=== PATIENT | female | born 1970 | race Hispanic/Latino ===

== ENCOUNTER 2023-03-25 19:02 | Inpatient (IN) | payer OTHER ==
--- OUTSIDE RECORDS SUMMARY | 2023-03-25 19:05 | XMS REPORT | Continuity of Care Document ---
Author Name Unknown Address [address] [facility] [address] [place] [address] [facility] thconnect Address [address] [facility] [address] [place] [address] Care Team Providers Care Gun Examiner Name Role Phone SANDRA JAUREGUI Primary Care Physician Unava ilJAZMIN Castro Attending Clinician Unavailable [email or web address] Attending Clinician Unavaila ble LAB90 Attending Clinician Unavailable MIGUEL SUE Attending Clinician Unavaila ble TESTING, [place] AAKASH DELACRUZ Attending Clinician U navailable Radiology Attending Clinician Unavailable RADIOLOGY Attending Clinician Unavailable Doctor Unassigned, [place] Attending Clinician U navailable [email or web address] Admitting Clinician Unavaila SANDRA Mcadams Admitting Clinician Unavaila ble Payers Payer Name Policy Type Policy Number Effective Date Expirati on Date Source [facility] MARLO CORCORAN [employer] 9 [id number] 2023 00:00:00 MANJEET CORCORAN: HMO ON STANDARD 9 [id number] 2022 00:00:00 [employer] 2 [id number] 2022 00:00:00 Problems Condition Name Condition Details Condition Category Status Onset Date Resolution Date Last Treatment Date Treating Clinician Comments Source Well adult exam Well adult exam Disease Active 10-05 00:00: 00 Henny Bautista Externa l Allergies, Adverse Reactions, Alerts Allergy Name Allergy Type Status Severity Reaction(s) Onset Date Inactive Date Treating Clinician Comments Source Sofia - Intraven jesenia Propensi ty to adverse reaction to drug Active 09-06 00:00: 00 NO KNOWN ALLERGIE S Drug Class Active [facility] Social History Social Habit Start Date Stop Date Quantity Comments Source Gender identity Meena hernandez Seybold - External Sexual orientation Ori jay Seybold - External Alcohol intake 2022-10-05 00:00:00 2022-10-05 00:00:00 Ex-drinker (finding) Henny Sejaimeold - External Tobacco use and exposure 2022-05-03 00:00:00 2022-05-03 00:00:00 Smokeless tobacco non-user Henny jaimemary - External Education 2022-05-03 00:00:00 2022-05-03 00:00:00 6 Henny cherelle - External History of Social function 2022-05-03 00:00:00 2022-05-03 00:00:00 Henny Diego - External Sex Assigned At 1970 00:00:00 1970 00:00:00 Henny jaimeold - External Smoking Status Start Date Stop Date Source Tobacco smoking consumption unknown Henny cherelle - External Never smoked tobacco Henny Sejaimemary - External Medications Ordered Medication Name Filled Medication Name Start Date Stop Date Current Medication? Ordering Clinician Indication Dosage Frequency Signature (SIG) Comments Components Source FLUTICASONE PROPIONATE, NASAL, 50 MCG/ACT nasal Suspension 10-05 00:00: 00 Yes [id number] 50ug QD Use 1 spray (50 mcg total) in each nostril daily as needed for rhinitis Henny Bautista Externa l Cetirizine (ZYRTEC) 10 MG oral Tablet 10-05 00:00: 00 Yes [id number] 10mg QD Take 1 tablet (10 mg total) by mouth daily as needed for allergies Henny Diego - Externa l PAXLOVID STANDARD (30) (300/100) Therapy Pack 08-05 00:00: 00 10-05 00:00 :00 No [id number] Take two 150 mg nirmatrelv ir (pink) tablets with one 100 mg ritonavir (white) tablet by mouth two times daily for 5 days Henny dykes Amoxicillin -Pot Clavulanate 875-125 MG oral Tablet 08-04 00:00: 00 Yes [id number] 1{tbl} Take 1 tablet by mouth 2 times daily Henny dykes Benzonatate (Tessalon Perles) 100 MG oral Capsule 08-04 00:00: 00 Yes [id number] 100mg Q.80697873 [id number] 3D Take 1 capsule (100 mg total) by mouth 3 times daily as needed for cough Henny dykes Amoxicillin -Pot Clavulanate 875-125 MG oral Tablet 08-04 00:00: 00 10-05 00:00 :00 No [id number] 1{tbl} Take 1 tablet by mouth 2 times daily Henny dykes Benzonatate (Tessalon Perles) 100 MG oral Capsule 08-04 00:00: 00 10-05 00:00 :00 No [id number] 100mg Q.44377754 [id number] 3D Take 1 capsule (100 mg total) by mouth 3 times daily as needed for cough Henny dykes FLUTICASONE PROPIONATE, NASAL, 50 MCG/ACT nasal Suspension 07-01 00:00: 00 Yes [id number] SPRAY 1 SPRAY INTO EACH NOSTRIL EVERY DAY Henny dykes FLUTICASONE PROPIONATE, NASAL, 50 MCG/ACT nasal Suspension 07-01 00:00: 00 10-05 00:00 :00 No [id number] SPRAY 1 SPRAY INTO EACH NOSTRIL EVERY DAY Henny dykes Azithromyci n 250 MG oral Tablet 05-03 00:00: 00 08-04 00:00 :00 No [id number] Take 2 tablets by mouth on day 1 then 1 tablet by mouth daily for 4 days thereafter . Henny dykes Azithromyci n 250 MG oral Tablet 05-03 00:00: 05-09 04:59 :00 No [id number] Take 2 tablets by mouth on day 1 then 1 tablet by mouth daily for 4 days thereafter . Henny dykes Naproxen 500 MG oral Tablet 04-26 00:00: 00 Yes [id number] 500mg Take 1 tablet (500 mg total) by mouth in the morning and 1 tablet (500 mg total) in the evening. Take with meals. Henny dykes Cetirizine HCl (ZyrTEC Allergy) 10 MG oral Capsule 04-26 00:00: 00 Yes [id number] 10mg Take 1 capsule (10 mg total) by mouth daily Henny dykes methylPREDN ISolone 4 MG oral Tablet Therapy Pack 04-26 00:00: 00 Yes [id number] 1{jo} Take 1 jo by mouth See Admin Instructio ns Use as directed Henny dykes FLUTICASONE PROPIONATE, NASAL, 50 MCG/ACT nasal Suspension 04-26 00:00: 00 Yes [id number] 50ug Use 1 spray (50 mcg total) in each nostril daily Henny dykes Benzonatate (Tessalon Perles) 100 MG oral Capsule 04-26 00:00: 00 Yes [id number] 100mg Q.49220204 [id number] 3D Take 1 capsule (100 mg total) by mouth 3 times daily as needed for cough Henny dykes Naproxen 500 MG oral Tablet 04-26 00:00: 00 Yes [id number] 500mg Take 1 tablet (500 mg total) by mouth in the morning and 1 tablet (500 mg total) in the evening. Take with meals. Henny dykes FLUTICASONE PROPIONATE, NASAL, 50 MCG/ACT nasal Suspension 04-26 00:00: 00 Yes [id number] 50ug Use 1 spray (50 mcg total) in each nostril daily Henny dykes Benzonatate (Tessalon Perles) 100 MG oral Capsule 04-26 00:00: 00 Yes [id number] 100mg Q.86475463 [id number] 3D Take 1 capsule (100 mg total) by mouth 3 times daily as needed for cough Henny dykes Cetirizine (ZYRTEC) 10 MG oral Tablet 04-26 00:00: 00 Yes 1{tbl} Take 1 tablet by mouth daily Henny dykes Naproxen 500 MG oral Tablet 04-26 00:00: 00 Yes [id number] 500mg Take 1 tablet (500 mg total) by mouth in the morning and 1 tablet (500 mg total) in the evening. Take with meals. Henny dykes Cetirizine (ZYRTEC) 10 MG oral Tablet 04-26 00:00: 00 Yes 10mg Take 1 tablet (10 mg total) by mouth daily Henny dykes Naproxen 500 MG oral Tablet 04-26 00:00: 00 Yes [id number] 500mg Take 1 tablet (500 mg total) by mouth in the morning and 1 tablet (500 mg total) in the evening. Take with meals. Henny dykes Cetirizine (ZYRTEC) 10 MG oral Tablet 04-26 00:00: 00 10-05 00:00 :00 No 10mg Take 1 tablet (10 mg total) by mouth daily Henny dykes Benzonatate (Tessalon Perles) 100 MG oral Capsule 04-26 00:00: 00 08-04 00:00 :00 No [id number] 100mg Q.[id number] 3D Take 1 capsule (100 mg total) by mouth 3 times daily as needed for cough Henny dykes Cetirizine HCl (ZyrTEC Allergy) 10 MG oral Capsule 04-26 00:00: 00 05-03 00:00 :00 No [id number] 10mg Take 1 capsule (10 mg total) by mouth daily Henny dykes methylPREDN ISolone 4 MG oral Tablet Therapy Pack 04-26 00:00: 00 05-03 00:00 :00 No [id number] 1{jo} Take 1 jo by mouth See Admin Instructio ns Use as directed Henny Seybold - Externa l APPLY 2 TOPICAL GRAMS TO AFFECTED AREAS TWICE DAIY 09-06 00:00: 00 No TAKE 1 CAPSULE BY MOUTH TWICE A DAY FOR 7 DAYS 09-06 00:00: 00 No 100 TAKE 1 TABLET BY MOUTH EVERY 12 HOURS FOR 10 DAYS 09-06 00:00: 00 No TAKE 1 TAB(S) ORALLY EVERY 6 HOURS, NEEDED TAKE WITH FOOD 09-06 00:00: 00 No 400 TAKE 1 CAPSULE BY MOUTH TWICE A DAY FOR 7 DAYS 09-06 00:00: 00 No 100 Dose Unknown 08-13 00:00: 00 No TAKE 1 CAPSULE BY MOUTH TWICE A DAY FOR 7 DAYS 08-13 00:00: 00 No amoxicillin 875 mg-potassiu m clavulanate 125 mg tablet 08-13 00:00: 00 No 1mg Bromfed DM 2 mg-30 mg-10 mg/5 mL oral syrup 08-13 00:00: 00 No 10mg/5 mL APPLY 2 TOPICAL GRAMS TO AFFECTED AREAS TWICE 08-13 00:00: 00 No TOME JENNI TABLETA MONSTER VECES AL LIZETTE CUANDO SEA NECESARIO 30 08-13 00:00: 00 No TAKE 1 TAB(S) ORALLY EVERY 6 HOURS, NEEDED TAKE WITH FOOD 08-13 00:00: 00 No TOME JENNI TABLETA MONSTER VECES AL LIZETTE CUANDO SEA NECESARIO 30 08-13 00:00: 00 No Vital Signs Vital Name Observation Time Observation Value Comments S ource Systolic blood pressure 2022-10-05 13:39:00 123 mm[Hg] Henny ybvito ld - External Diastolic blood pressure 2022-10-05 13:39:00 67 mm[Hg] Henny Gilmanybo ld - External Heart rate 2022-10-05 13:39:00 69 /min Kelse servando Abramsold - External Body temperature 2022-10-05 13:39:00 36.61 Lorin Henny Seybmary - External Respiratory rate 2022-10-05 13:39:00 15 /min Henny Seybold - External Body height 2022-10-05 13:39:00 157.5 cm Meena ey Seybold - External Body weight 2022-10-05 13:39:00 58.968 kg Meena ey Seybold - External BMI 2022-10-05 13:39:00 23.78 kg/m2 Meena ey Seybold - External Oxygen saturation in Arterial blood by Pulse oximetry 2022-10-05 13:39:00 99 /min Henny Seybo ld - External Systolic blood pressure 2022-08-04 14:10:00 112 mm[Hg] Henny Seybo ld - External Diastolic blood pressure 2022-08-04 14:10:00 69 mm[Hg] Henny Seybo ld - External Heart rate 2022-08-04 14:10:00 100 /min Kelse y Seybold - External Body temperature 2022-08-04 14:10:00 37 Lorin Henny Seybold - External Respiratory rate 2022-08-04 14:10:00 18 /min Henny Seybold - External Body height 2022-08-04 14:10:00 157.5 cm Meena ey Seybold - External Body weight 2022-08-04 14:10:00 59.875 kg Meena ey Seybold - External BMI 2022-08-04 14:10:00 24.14 kg/m2 Meena ey Seybold - External Systolic blood pressure 2022-05-03 20:43:00 120 mm[Hg] Henny Seybo ld - External Diastolic blood pressure 2022-05-03 20:43:00 69 mm[Hg] Henny Seybo ld - External Heart rate 2022-05-03 20:43:00 62 /min Kelse y Seybold - External Body temperature 2022-05-03 20:43:00 36.94 Lorin Henny Seybold - External Respiratory rate 2022-05-03 20:43:00 15 /min Henny Seybold - External Body height 2022-05-03 20:43:00 157.5 cm Meena ey Seybold - External Body weight 2022-05-03 20:43:00 62.596 kg Meena ey Seybold - External BMI 2022-05-03 20:43:00 25.24 kg/m2 Meena Diego - External Oxygen saturation in Arterial blood by Pulse oximetry 2022-05-03 20:43:00 99 /min Henny Seoneyda ld - External BP Systolic 2021-08-13 15:12:00 119 mm[Hg] BP Diastolic 2021-08-13 15:12:00 78 mm[Hg] Weight Measured 2021-08-13 15:12:00 126.00 pounds Height Measured 2021-08-13 15:12:00 60.00 inches Body Temperature 2021-08-13 15:12:00 98.10 degrees Heart Rate 2021-08-13 15:12:00 80.00 /min Respiratory Rate 2021-08-13 15:12:00 18.00 /min BP Systolic 2019-10-31 14:58:00 120 mm[Hg] BP Diastolic 2019-10-31 14:58:00 81 mm[Hg] Weight Measured 2019-10-31 14:58:00 135.20 pounds Height Measured 2019-10-31 14:58:00 60.00 inches Body Temperature 2019-10-31 14:58:00 98.10 degrees Heart Rate 2019-10-31 14:58:00 73.00 /min Respiratory Rate 2019-10-31 14:58:00 16.00 /min BP Systolic 2015-06-01 16:20:00 116 mm[Hg] BP Diastolic 2015-06-01 16:20:00 77 mm[Hg] Weight Measured 2015-06-01 16:20:00 123.00 pounds Height Measured 2015-06-01 16:20:00 60.00 inches Body Temperature 2015-06-01 16:20:00 98.20 degrees Heart Rate 2015-06-01 16:20:00 65.00 /min Respiratory Rate 2015-06-01 16:20:00 Procedures Procedure Date / Time Performed Performing Clinicia n Source CONSENT/REFUSAL FOR DIAGNOSIS AND TREATMENT 2021-12-20 21:32:54 Doctor Unassigned, [place] [facility] Plan of Care Planned Activity Planned Date Details Comments Source Goal Plan of Care Note [code = 38032-5] Goal Plan of Care Note [code = 67182-3] Goal Plan of Care Note [code = 65646-6] Goal Plan of Care Note [code = 17850-0] Goal Plan of Care Note [code = 11573-0] Goal Plan of Care Note [code = 83925-4] Goal Plan of Care Note [code = 92726-6] Goal Plan of Care Note [code = 62324-5] Goal Plan of Care Note [code = 37447-1] Encounters Start Date/Time End Date/Time Encounter Type Admission Type Attending [facility] Care Department Encounter ID Source 2023-03-18 00:00:00 2023-03-18 00:00:00 Outpatient JAZMIN JUNIOR [id number] [facility] 2022-12-24 00:00:00 2022-12-24 00:00:00 Outpatient [email or web address] diyala_S PRIV [facility] [id number] [facility] 2022-10-05 09:30:00 2022-10-05 09:30:00 Outpatient LAB90 HENNY GUERRIER [id number] Henny [facility] 2022-10-05 08:45:00 2022-10-05 08:45:00 Outpatient JAZMIN JUNIOR [id number] [facility] 2022-10-05 00:00:00 2022-10-05 00:00:00 Outpatient HENNY GUERRIER [id number] H[facility] 2022-08-04 10:15:00 2022-08-04 10:15:00 Outpatient LAB90 HENNY GUERRIER [id number] H[facility] 2022-08-04 09:30:00 2022-08-04 09:30:00 Outpatient JAZMIN JUNIOR [id number] Henny Diego 2022-07-01 00:00:00 2022-07-01 00:00:00 Outpatient MIGUEL SUE [id number] Henny Diego 2022-06-30 10:00:00 2022-06-30 10:00:00 Outpatient JAZMIN JUNIOR [id number] Henny Diego 2022-06-17 00:00:00 2022-06-17 00:00:00 Outpatient SUEMIGUEL BUSH HENNY [id number] Henny Gilmanmary 2022-05-31 16:00:00 2022-05-31 16:00:00 Outpatient PREZAJAZMIN MossWILI GUERRIER [id number] [facility] 2022-05-23 00:00:00 2022-05-23 00:00:00 Outpatient MIGUEL SUE HENNY GUERRIER [id number] Henny Gilmanmary 2022-05-03 15:45:00 2022-05-03 15:45:00 Outpatient PREJAZMIN HENRIQUEZ HENNY GUERRIER [id number] Henny Gilmanmary 2022-05-03 00:00:00 2022-05-03 00:00:00 Outpatient JAZMIN JUNIOR HENNY GUERRIER [id number] [facility] 2022-04-26 14:10:00 2022-04-26 14:10:00 Outpatient TESTINGGINA [id number] Henny [facility] 2022-04-26 09:30:00 2022-04-26 09:30:00 Outpatient SUEMIGUEL BUSH HENNY GUERRIER [id number] [facility] 2022-04-26 00:00:00 2022-04-26 00:00:00 Outpatient MIGUEL SUE HENNY GUERRIER [id number] [facility] 2021-12-20 16:34:34 2021-12-20 23:59:00 Hospital Encounter Radiology [facility] [id number] [facility] 2021-12-20 16:34:34 2021-12-20 23:59:00 Outpatient R RADIOLOGY [facility] [id number] [facility] 2021-12-20 00:00:00 2021-12-20 00:00:00 Orders Only Doctor Unassigned, [place] [facility] [id number] [facility] 2021-09-06 00:00:00 2021-09-06 00:00:00 Outpatient Visit [id number] Results Test Description Test Time Test Comments Results Result Co mments Source LIPID [id number] 00:00:00* Test Item Value Reference Range Interpretation Comme nts CHOLESTEROL (test code = 2210) 221 MG/DL TRIGLYCERIDES (test code = 2232) 81 MG/DL HDL CHOLESTEROL (test code = 2220) 77 MG/DL CALC LDL CHOL (test code = 2237) 126 MG/DL RISK RATIO LDL/HDL (test cod e = 2238) 1.64 RATIO CBC W/AUTO [id number] 00:00:00* Test Item Value Reference Range Interpretation Comme nts WBC (test code = 1001) 5.1 K/UL RBC (test code = 1002) 4.45 M/UL HEMOGLOBIN (test code = 1003) 13.0 G/DL HEMATOCRIT (test code = 1004) 38.0 % MCV (test code = 1005) 85.4 fL MCH (test code = 1006) 29.2 PG MCHC (test code = 1007) 34.2 G/DL RDW (test code = 1038) 13.7 % NEUTROPHILS (test code = 1008) 50.5 % LYMPHOCYTES (test code = 1010) 37.2 % MONOCYTES (test code = 1011) 9.1 % EOSINOPHILS (test code = 1012) 2.4 % BASOPHILS (test code = 1013) 0.8 % PLATELET COUNT (test code = 1015) 253 K/UL CBC W/AUTO [id number] 00:00:00* Test Item Value Reference Range Interpretation Comme nts WBC (test code = 1001) 5.1 K/UL RBC (test code = 1002) 4.45 M/UL HEMOGLOBIN (test code = 1003) 13.0 G/DL HEMATOCRIT (test code = 1004) 38.0 % MCV (test code = 1005) 85.4 fL MCH (test code = 1006) 29.2 PG MCHC (test code = 1007) 34.2 G/DL RDW (test code = 1038) 13.7 % NEUTROPHILS (test code = 1008) 50.5 % LYMPHOCYTES (test code = 1010) 37.2 % MONOCYTES (test code = 1011) 9.1 % EOSINOPHILS (test code = 1012) 2.4 % BASOPHILS (test code = 1013) 0.8 % PLATELET COUNT (test code = 1015) 253 K/UL HEMOGLOBIN [id number] 00:00:00* Test Item Value Reference Range Interpretation Comme nts HEMOGLOBIN A1c (test code = 81471) 5.8 % HEMOGLOBIN [id number] 00:00:00* Test Item Value Reference Range Interpretation Comme nts HEMOGLOBIN A1c (test code = 63791) 5.8 %
[2023-03-25 19:41] LABS: Absolute Lymphocytes (CBC) 3.5 K/uL (0.7-4.9); Hematocrit 40.6 % (36.0-45.0); Lymphocytes % 44.8 % (15.3-44.8); MCV 87.3 fL (80-100); MPV 8.5 fL (7.6-11.3); Platelets 261 thou/uL (152-406); RBC Red Blood Cell Count 4.65 M/uL (3.86-4.86)
[2023-03-25 19:57] LABS: Specific Gravity > 1.030 (1.005-1.030); Urine Bacteria None Seen /HPF (<20); Urine Bilirubin NEGATIVE (Negative); Urine Blood 2+ (Negative); Urine Clarity Clear (Clear); Urine Color Light-Yellow (Yellow); Urine Glucose 3+ (Negative); Urine Mucus Slight /HPF (None Seen); Urine Protein 1+ (Negative); Urine RBC 21-50 /HPF (None Seen); Urine Urobilinogen Normal (Normal)
[2023-03-25 20:01] LABS: Albumin 3.9 g/dL (3.4-5.0); Bilirubin Total 0.2 mg/dL (0.2-1.0); Potassium 2.7 mEq/L (3.5-5.1); Protein, Total 8.2 g/dL (6.4-8.2); Troponin High Sensitivity 4.7 pg/mL (<58.9)
[2023-03-25 20:13] LABS: SARS-CoV-2 Antigen Rapid Res Negative (Negative)
--- NOTE | 2023-03-25 20:32 | RAD REPORT ---
EXAM DESCRIPTION: RAD - Chest Single View - 03/25/2023 8:13 pm CLINICAL HISTORY: COUGH COMPARISON: No comparisons FINDINGS: Lines: None. Lungs: No evidence of edema or pneumonia. Pleural: No significant pleural effusions or pneumothorax. Cardiac: The heart size is within normal limits. Mediastinum: Within normal limits. Bones: No acute fractures. Other: None IMPRESSION: No acute cardiopulmonary disease.
[2023-03-25] MEDS ORDERED: KCL 20 MEQ/100 mL IVPB 100 ML IV ONE (20:42)
[2023-03-25] MEDS ORDERED: PROMETHAZINE INJ 25 MG/ML AMP ONE (20:42)
[2023-03-25] MEDS ORDERED: NA CHLORIDE 0.9% 1,000 ML ONE ×2 (20:43→21:22)
--- NOTE | 2023-03-25 20:48 | RAD REPORT ---
EXAM DESCRIPTION: CTAbdomen Pelvis W Contrast - 03/25/2023 8:36 pm CLINICAL HISTORY: nausea/vomiting COMPARISON: Abdomen Pelvis W Contrast dated 02/14/2018 TECHNIQUE: CT of the abdomen and pelvis was performed. All CT scans are performed using dose optimization technique as appropriate and may include automated exposure control or mA/KV adjustment according to patient size. FINDINGS: Lower chest: No acute abnormality. Liver: Too small to characterize liver lesions which are likely benign. Biliary: No biliary ductal dilatation. Stomach: No significant focal abnormality. Duodenum: No significant focal abnormality. Pancreas: No significant abnormality. Spleen: No significant abnormality. Adrenal: No suspicious lesions. Kidney/ureter: No hydronephrosis. No renal calculi. Too small to characterize and/or benign appearing renal lesions are noted. Retroperitoneum: No retroperitoneal adenopathy. Vascular: No aneurysm. Bowel: No significant focal abnormality. Normal appendix . Peritoneum: No ascites or free air. Bladder: Grossly unremarkable. Reproductive: No adnexal masses. Bones: No acute fracture. Mild broad-based disc bulges are present at L4-5 and L5-S1. Other: n/a IMPRESSION: No acute intra-abdominal or pelvic finding. Normal appendix .
--- NOTE | 2023-03-25 20:49 | RAD REPORT ---
EXAM DESCRIPTION: CT - Head Brain Wo Cont - 03/25/2023 8:28 pm CLINICAL HISTORY: vomiting COMPARISON: No comparisons TECHNIQUE: All CT scans are performed using dose optimization technique as appropriate and may inclu de automated exposure control or mA/KV adjustment according to patient size. FINDINGS: No intracranial hemorrhage, hydrocephalus or extra-axial fluid collection.No areas of brai n edema or evidence of midline shift. The paranasal sinuses and mastoids are clear. The calvarium is intact. IMPRESSION: No acute intracranial abnormality.
--- NOTE | 2023-03-25 21:44 | EDPHYS ---
Physician Documentation [facility] Name: Myra Stapleton Age: 53 yrs Sex: Female : 1970 Arrival Date: 03/25/2023 Time: 19:02 Bed 18 Private MD: ED Physician Paras Oden HPI: 03/25 19:17 This 53 yrs old Female presents to ER via Wheelchair with complaints of rn Weakness, Nausea/Vomiting. 19:18 The patient presents to the emergency department with nausea, vomiting. Onset: The rn symptoms/episode began/occurred 2 hour(s) ago. Possible causes: unknown. The symptoms are aggravated by nothing. The symptoms are alleviated by nothing. Associated signs and symptoms: Pertinent positives: nausea, vomiting, Pertinent negatives: fever, GI bleeding. Severity of symptoms: At their worst the symptoms were mild in the emergency department the symptoms have improved. The patient has not experienced similar symptoms in the past. The patient has not recently seen a physician. Patient reports approximately 2 hours ago began with generalized weakness, nausea/vomiting x 1. Following episode felt her entire body feel numb and weak, feels like both arms are crawling with hands as well as entire face. Also reported slight headache at onset. No sick contacts. No fever. Patient also reports cough. Patient reports feels like is getting sick.. Historical: - Allergies: 19:11 No Known Allergies; as6 - PMHx: 19:11 None; as6 - PSHx: 19:11 None; as6 - Immunization history:: Adult Immunizations up to date. - Social history:: Smoking status: Patient denies any tobacco usage or history of. - Family history:: not pertinent. - Hospitalizations: : No recent hospitalization is reported. ROS: 19:18 Constitutional: Negative for fever, chills, and weight loss, Eyes: Negative for injury, rn pain, redness, and discharge, Neck: Negative for injury, pain, and swelling, Cardiovascular: Negative for chest pain, palpitations, and edema, Respiratory: Negative for shortness of breath, cough, wheezing, and pleuritic chest pain, Abdomen/GI: Negative for abdominal pain, nausea, vomiting, diarrhea, and constipation, MS/Extremity: Negative for injury and deformity, Skin: Negative for injury, rash, and discoloration, Neuro: Negative for seizure, negative for focal weakness or numbness Exam: 19:18 Constitutional: This is a well developed, well nourished patient who is awake, alert, rn moderate tachypnea and appears very anxious and hyperventilating, will not open her eyes during exam or for conversation. Ambulatory to room without assistance. Head/Face: Normocephalic, atraumatic. Eyes: Pupils equal round and reactive to light, extra-ocular motions intact ENT: Moist mucous membranes Neck: Trachea midline, no masses palpated, and no cervical lymphadenopathy. Supple, full range of motion without nuchal rigidity, or vertebral point tenderness. No Meningismus. Cardiovascular: Regular rate and rhythm. No pulse deficits. Respiratory: Initially hyperventilating, after coaching was able to slow her respiratory rate down. Abdomen/GI: Soft no focal tenderness, no rebound or guarding Skin: Warm, dry with normal turgor. Normal color with no rashes, no lesions, and no evidence of cellulitis. MS/ Extremity: Pulses equal, no cyanosis. Neuro: Awake and alert, GCS 15, oriented to person, place, time, and situation. Cranial nerves II-XII grossly intact. Motor strength 4/5 in all extremities. Initially when I held up both arms she dropped both to bed instantly, after telling her that she could in fact hold them both up she was able to hold up both arms for full 10 seconds with equal strength. Sensory grossly intact. Cerebellar exam normal. Normal gait. Vital Signs: 19:10 BP 160 / 95; Pulse 106; Resp 24 S; Temp 98.1(TE); Pulse Ox 100% on R/A; Weight 58.97 kg as6 (R); Height 5 ft. 2 in. (R); Pain 0/10; 19:16 Pulse 94; Resp 20; rn 19:30 BP 159 / 84; Pulse 90; Pulse Ox 100% on R/A; nw1 20:45 BP 149 / 79; Pulse 90; Pulse Ox 100% on R/A; nw1 21:30 BP 143 / 75; Pulse 82; Pulse Ox 99% on R/A; nw1 22:41 BP 141 / 79; Pulse 67; Pulse Ox 98% on R/A; nw1 23:00 BP 133 / 68; Pulse 68; Pulse Ox 98% on R/A; nw1 23:30 BP 119 / 75; Pulse 76; Pulse Ox 97% on R/A; nw1 03/26 00:00 BP 119 / 75; Pulse 75; Resp 16; Pulse Ox 99% on R/A; nw1 03/25 19:10 Body Mass Index 23.78 (58.97 kg, 157.48 cm) as6 03/25 19:10 Pain Scale: Adult as6 Compa Coma Score: 03/25 20:47 Eye Response: spontaneous(4). Motor Response: obeys commands(6). Verbal Response: nw1 oriented(5). Total: 15. MDM: 19:03 Patient medically screened. rn 19:31 ED course: Patient ambulatory to bathroom without assistance. Steady gait. No ataxia.. rn 21:41 Differential diagnosis: Viral syndrome, dehydration, electrolyte disorder, rn hyperglycemia, renal failure, hypertensive episode, anxiety. Data reviewed: vital signs, nurses notes, lab test result(s), EKG, radiologic studies, CT scan, plain films, and as a result, I will admit patient. Consideration of Admission/Observation Patient was admitted/placed on observation. Escalation of care including admission/observation considered. Management of patient was discussed with the following: Hospitalist: Discussed with hospitalist, will evaluate and admit patient. Counseling: I had a detailed discussion with the patient and/or guardian regarding the historical points, exam findings, and any diagnostic results supporting the discharge/admit diagnosis, lab results, radiology results, the need for further work-up and treatment in the hospital. Response to treatment: the patient's symptoms have mildly improved after treatment. ED course: Patient with lactic acidosis, hypokalemia, still feels weak. Glucose only 186. Ketones 1+ in urine. Metabolic acidosis likely secondary to lactic acidosis but unclear etiology of lactic acidosis. Patient only vomited 1 time. Might be the beginning of her illness. COVID and flu negative. Chest x-ray clear. CT abdomen without acute findings. CT head negative.. 03/25 19:16 Order name: CBC with Diff; Complete Time: 19:45 rn 03/25 19:16 Order name: CMP; Complete Time: 20:12 rn 03/25 19:16 Order name: Lipase; Complete Time: 20:12 rn 03/25 19:16 Order name: Urinalysis w/ reflexes; Complete Time: 20:12 rn 03/25 19:16 Order name: Troponin High Sensitivity; Complete Time: 20:12 rn 03/25 19:34 Order name: SARS RAPID; Complete Time: 20:13 rn 03/25 19:34 Order name: Flu; Complete Time: 20:13 rn 03/25 20:14 Order name: Lactate w/ 2H reflex if indic.; Complete Time: 21:32 rn 03/25 21:33 Order name: Blood Culture Adult (2) rn 03/25 23:05 Order name: Lactate w/ 2H reflex if indic. EDMS 03/25 23:05 Order name: Urinalysis w/ reflexes EDMS 03/25 23:05 Order name: CBC with Automated Diff EDMS 03/25 23:05 Order name: CBC with Automated Diff EDMS 03/25 23:05 Order name: Comprehensive Metabolic Panel EDMS 03/25 23:05 Order name: Comprehensive Metabolic Panel EDMS 03/25 23:05 Order name: Magnesium EDMS 03/25 23:05 Order name: Magnesium EDMS 03/25 23:05 Order name: Phosphorus EDMS 03/25 23:05 Order name: Phosphorus EDMS 03/25 23:39 Order name: Hemoglobin A1c EDAZ 03/25 19:16 Order name: CT Abd/Pelvis - IV Contrast Only; Complete Time: 20:52 rn 03/25 19:16 Order name: CT Head Brain wo Cont; Complete Time: 20:52 rn 03/25 19:21 Order name: XRAY Chest (1 view); Complete Time: 20:52 rn 03/25 19:16 Order name: EKG; Complete Time: 19:17 rn 03/25 19:16 Order name: IV Saline Lock; Complete Time: 19:30 rn 03/25 19:16 Order name: Labs collected and sent; Complete Time: 19:30 rn 03/25 19:16 Order name: EKG - Nurse/Tech; Complete Time: 19:43 rn Administered Medications: 19:46 Not Given (Duplicate Order): ondansetron 4 mg IVP once; over 2 minutes rn 20:46 Drug: Promethazine IVP 12.5 mg IVP once Route: IVP; Site: right antecubital; nw1 20:46 Drug: Potassium Chloride IV 20 mEq IV at calculated rate once; administer over 1-2 nw1 hours Route: IV; Rate: calculated rate; Site: right antecubital; 20:46 Drug: NS 0.9% IV 1000 ml IV at 1000 ml once Route: IV; Rate: 1000 ml; Site: right nw1 antecubital; 21:35 Drug: NS 0.9% IV 1000 ml IV at 1 bolus Per protocol; 1000 mL bolus Route: IV; Rate: 1 nw1 bolus; Site: right antecubital; 22:15 Drug: Rocephin IV 1 grams IV at calculated rate once; Given slow IV push per pharmacy nw1 instructions Route: IV; Rate: calculated rate; Site: right antecubital; Disposition Summary: 03/25/23 21:44 Hospitalization Ordered Notes: Hospitalization Status: Observation rn Provider: Lesly Vega rn Location: Telemetry/MedSurg (observation) rn Condition: Stable rn Problem: new rn Symptoms: are unchanged rn Bed/Room Type: Standard rn Room Assignment: 211(03/25/23 23:07) pm6 Diagnosis - Muscle weakness (generalized) rn - Acidosis rn - Dehydration rn Forms: - Medication Reconciliation Form rn - SBAR form rn - Leadership Thank You Letter rn Signatures: Dispatcher [employer] EDMS Paras Oden MD MD rn Slawson, Ashby, RN RN as6 Ashley Joy RN RN nw1 Kiley Dye pm6 Corrections: (The following items were deleted from the chart) 19:11 19:11 PMHx: Unable to Obtain; as6 as6 19:23 19:18 Constitutional: This is a well developed, well nourished patient who is awake, rn alert, moderate tachypnea and appears very anxious and hyperventilating, will not open her eyes during exam or for conversation. Ambulatory to room without assistance. Head/Face: Normocephalic, atraumatic. Eyes: Pupils equal round and reactive to light, extra-ocular motions intact ENT: Moist mucous membranes Neck: Trachea midline, no masses palpated, and no cervical lymphadenopathy. Supple, full range of motion without nuchal rigidity, or vertebral point tenderness. No Meningismus. rn 23:07 21:44 rn pm6
--- NOTE | 2023-03-25 21:44 | ER ---
Nurse's Notes [facility] Name: Myra Stapleton Age: 53 yrs Sex: Female : 1970 Arrival Date: 03/25/2023 Time: 19:02 Bed 18 Private MD: Diagnosis: Muscle weakness (generalized);Acidosis;Dehydration Presentation: 03/25 19:11 Chief complaint: Patient states: reports weakness, nausea, one episode of vomiting. at as6 time of triage pt appears anxious. Coronavirus screen: At this time, the client does not indicate any symptoms associated with coronavirus-19. Ebola Screen: No symptoms or risks identified at this time. Initial Sepsis Screen: Does the patient meet any 2 criteria? No. Patient's initial sepsis screen is negative. Does the patient have a suspected source of infection? No. Patient's initial sepsis screen is negative. Risk Assessment: Do you want to hurt yourself or someone else? Patient reports no desire to harm self or others. Onset of symptoms was March 25, 2023. 19:11 Acuity: JAZMYN 3 as6 19:11 Method Of Arrival: Wheelchair as6 Historical: - Allergies: 19:11 No Known Allergies; as6 - PMHx: 19:11 None; as6 - PSHx: 19:11 None; as6 - Immunization history:: Adult Immunizations up to date. - Social history:: Smoking status: Patient denies any tobacco usage or history of. - Family history:: not pertinent. - Hospitalizations: : No recent hospitalization is reported. Screenin:47 [facility] ED Fall Risk Assessment (Adult) History of falling in the last 3 months, nw1 including since admission Yes- single mechanical fall (1 pt) Confusion or Disorientation Yes (5 pts) Intoxicated or Sedated No (0 pts) Impaired Gait No (0 pts) Mobility Assist Device Used No (0 pt) Altered Elimination No (0 pt) Score/Fall Risk Level 3 or more points = High Risk Oriented to surroundings, Maintained a safe environment, Educated pt \T\ family on fall prevention, incl call for assistance when getting out of bed, Assessed \T\ reinforced patient's understanding of fall precautions, Provided non-skid footwear, Hourly rounding (assess needs \T\ fall precautionary measures) done, Used ambulatory aids as needed (educated on \T\ assisted with), Used gait belt as appropriate. Abuse screen: Denies threats or abuse. Denies injuries from another. Nutritional screening: No deficits noted. Tuberculosis screening: No symptoms or risk factors identified. Assessment: 20:47 Reassessment: Pt noted on board and in room. No report received from triage nurse nwHattie Acuña RN. Assuming care at this time. 20:47 General: Appears comfortable, well groomed, well developed, anxious. Behavior is nw1 cooperative, anxious, quiet. Pain: Denies pain. Neuro: Level of Consciousness is awake, alert, obeys commands, Oriented to person, place, time, situation, Appropriate for age. Cardiovascular: Reports None. Respiratory: No deficits noted. GI: Reports nausea, vomiting. Musculoskeletal: No signs and/or symptoms reported regarding the musculoskeletal system. Reports weakness in generalized. Vital Signs: 19:10 BP 160 / 95; Pulse 106; Resp 24 S; Temp 98.1(TE); Pulse Ox 100% on R/A; Weight 58.97 kg as6 (R); Height 5 ft. 2 in. (R); Pain 0/10; 19:16 Pulse 94; Resp 20; rn 19:30 BP 159 / 84; Pulse 90; Pulse Ox 100% on R/A; nw1 20:45 BP 149 / 79; Pulse 90; Pulse Ox 100% on R/A; nw1 21:30 BP 143 / 75; Pulse 82; Pulse Ox 99% on R/A; nw1 22:41 BP 141 / 79; Pulse 67; Pulse Ox 98% on R/A; nw1 23:00 BP 133 / 68; Pulse 68; Pulse Ox 98% on R/A; nw1 23:30 BP 119 / 75; Pulse 76; Pulse Ox 97% on R/A; nw1 03/26 00:00 BP 119 / 75; Pulse 75; Resp 16; Pulse Ox 99% on R/A; nw1 03/25 19:10 Body Mass Index 23.78 (58.97 kg, 157.48 cm) as6 03/25 19:10 Pain Scale: Adult as6 Compa Coma Score: 03/25 20:47 Eye Response: spontaneous(4). Motor Response: obeys commands(6). Verbal Response: nw1 oriented(5). Total: 15. ED Course: 19:03 Patient arrived in ED. mr 19:03 Paras Oden MD is Attending Physician. rn 19:11 Arm band placed on right wrist. as6 19:12 Triage completed. as6 19:30 CBC with Diff Sent. bc6 19:30 CMP Sent. bc6 19:30 Lipase Sent. bc6 19:30 Inserted saline lock: 22 gauge in right antecubital area, using aseptic technique. bc6 Blood collected. 19:43 Flu Sent. bc6 19:43 SARS RAPID Sent. bc6 20:15 XRAY Chest (1 view) In Process Unspecified. EDMS 20:30 CT Head Brain wo Cont In Process Unspecified. EDMS 20:38 CT Abd/Pelvis - IV Contrast Only In Process Unspecified. EDMS 20:38 Ashley Joy, RN is Primary Nurse. nw1 20:47 Patient has correct armband on for positive identification. Bed in low position. Call nw1 light in reach. Side rails up X2. Adult w/ patient. Provided Education on: POC. Client placed on continuous cardiac and pulse oximetry monitoring. NIBP monitoring applied. awake overnight monitor on. Pulse ox on. NIBP on. Door closed. Warm blanket given. 20:47 No provider procedures requiring assistance completed. nw1 21:16 Lactate w/ 2H reflex if indic. Sent. nw1 21:43 Lesly Vega MD is Hospitalizing Provider. rn 22:52 Inserted saline lock: 20 gauge in right forearm, using aseptic technique. nw1 Administered Medications: 19:46 Not Given (Duplicate Order): ondansetron 4 mg IVP once; over 2 minutes rn 20:46 Drug: Promethazine IVP 12.5 mg IVP once Route: IVP; Site: right antecubital; nw1 20:46 Drug: Potassium Chloride IV 20 mEq IV at calculated rate once; administer over 1-2 nw1 hours Route: IV; Rate: calculated rate; Site: right antecubital; 20:46 Drug: NS 0.9% IV 1000 ml IV at 1000 ml once Route: IV; Rate: 1000 ml; Site: right nw1 antecubital; 21:35 Drug: NS 0.9% IV 1000 ml IV at 1 bolus Per protocol; 1000 mL bolus Route: IV; Rate: 1 nw1 bolus; Site: right antecubital; 22:15 Drug: Rocephin IV 1 grams IV at calculated rate once; Given slow IV push per pharmacy nw1 instructions Route: IV; Rate: calculated rate; Site: right antecubital; Medication: 20:47 VIS not applicable for this client. nw1 Outcome: 21:44 Decision to Hospitalize by Provider. rn 03/26 00:03 Admitted to Med/surg accompanied by nurse, room 211, with chart, Report called to [facility] Shirley Pineda RN 00:03 Condition: stable nw 00:03 Instructed on the need for admit, 01:04 Patient left the ED. [facility] Signatures: Dispatcher [employer] EDMS Lucinda Mai, Reg Reg mr Paras Oden MD MD rn Slawson, Ashby, RN RN as6 Avani Paige [facility] Ashley Joy RN RN nw Corrections: (The following items were deleted from the chart) 03/25 19:11 19:11 PMHx: Unable to Obtain; as6 as6 22:37 20:38 Reassessment: Pt noted on board and in room. No report received. Assuming care at [facility] this time. nw1
[2023-03-25] MEDS ORDERED: CEFTRIAXONE 1000 MG/VIAL ONE (21:59)
[2023-03-25] MEDS ORDERED: ONDANSETRON 4 MG/2 ML VIAL IV PRN (23:00)
[2023-03-25] MEDS ORDERED: ACETAMINOPHEN 325 MG TABLET PO PRN (23:00)
[2023-03-25] MEDS: D5.45NS W/KCL 20MEQ 1,000 ML IV SCH (23:00)
[2023-03-25] MEDS ORDERED: SODIUM CHLORIDE 0.9% 10ML INJ IV PRN (23:04)
[2023-03-25] MEDS ORDERED: PANTOPRAZOLE 40 MG INJ IVP ONE (23:04)
--- NOTE | 2023-03-25 23:45 | P.HP ---
Certification for Inpatient With expected LOS: >2 Midnights Practitioner: I am a practitioner with admitting privileges, knowledge of patient current condition, hospital course, and medical plan of care. Services: Services provided to patient in accordance with Admission requirements found in Title 42 Section 412.3 of the Code of Federal Regulations Patient History Date of Service: 03/25/23 Reason for admission: Nausea and vomiting History of Present Illness: 53-year-old female with no significant past medical history presented to the ED after she developed acute onset of nausea and an episode of vomiting. She denied any fever, diarrhea or abdominal pain. She reported that this morning she had some mild headache and took 2 tablets of Flaxin (220mg Ibuprofen). After that she felt uncomfortable and ate some food subsequently vomited. On arrival to the ED SBP 160 and pulse 106. Her labs showed lactic acid 2.8, potassium 2.7, bicarb 19, anion gap 17 and BUN/Cr of 21/1.27. CT head and CT ab domen and pelvis were negative for any acute findings. Chest x-ray was also negative. Patient was given IV Phenergan, IV fluid bolus and 20 mEq of potassium. Allergies No Known Allergies Allergy (Unverified 11/25/16 14:55) Review of Systems 10-point ROS is otherwise unremarkable (Except for HPI) Physical Examination - Vital Signs Temperature: 98.1 F Blood Pressure: 98/60 Pulse: 94 Respirations: 24 Pulse Ox (%): 100 - Physical Exam General: Alert, Oriented x3, Mild distress HEENT: Atraumatic, Normocephalic, PERRLA, Mucous membr. moist/pink Neck: Supple, No Thyromegaly Cardiovascular: No edema, Normal pulses, Normal S1 S2 Gastrointestinal: Normal bowel sounds, Soft and benign, Non-distended, No tenderness Musculoskeletal: No swelling, No erythema, No tenderness Neurological: Normal speech, Normal strength at 5/5 x4 extr, Normal tone, Sensation intact - Studies Laboratory Data (last 24 hrs) 03/25/23 03/25/23 19:30 19:30 WBC 7.90 Hgb 13.7 Hct 40.6 Plt Count 261 Sodium 136 Potassium 2.7 L BUN 21 H Creatinine 1.27 H Glucose 186 H Total Bilirubin 0.2 AST 12 L ALT 23 Alkaline Phosphatase 94 Lipase 46 Microbiology Data (last 24 hrs): 03/25/23 19:40 Nasopharnyx Influenza Type A Antigen Screen - Final 03/25/23 19:40 Nasopharnyx Influenza Type B Antigen Screen - Final Assessment and Plan - Plan Acute kidney injury Hypokalemia Acute gastritis secondary to NSAID use Anion gap metabolic acidosis Plan Continue IV fluid hydration, D5NS + KCl at 100 cc/h Electrolyte replacement and monitor labs PPI Antiemetics, diet as tolerated - Advance Directives Does patient have a Living Will: No Does patient have a Durable POA for Healthcare: No
[2023-03-26] MEDS: D5.45NS W/KCL 20MEQ 1,000 ML IV SCH ×3 (01:05→11:13)
[2023-03-26 01:16] VITALS: BMI 24.7
[2023-03-26 01:34] VITALS: O2SAT 96
[2023-03-26 05:39] VITALS: TEMP 97
[2023-03-26 05:49] LABS: Absolute Lymphocytes (CBC) 2.1 K/uL (0.7-4.9); Hematocrit 34.3 % (36.0-45.0); Lymphocytes % 30.8 % (15.3-44.8); MCV 87.8 fL (80-100); MPV 8.2 fL (7.6-11.3); Platelets 238 thou/uL (152-406); RBC Red Blood Cell Count 3.91 M/uL (3.86-4.86)
[2023-03-26 06:10] LABS: Bilirubin Total 0.2 mg/dL (0.2-1.0); Magnesium 2.2 mg/dL (1.6-2.4); Phosphorus 2.9 mg/dL (2.5-4.9); Potassium 3.7 mEq/L (3.5-5.1); Protein, Total 6.6 g/dL (6.4-8.2)
[2023-03-26] MEDS ORDERED: PANTOPRAZOLE 40MG TABLET PO SCH (07:30)
[2023-03-26] MEDS ORDERED: POTASSIUM CL SA 10 MEQ TAB PO ONE (09:00)
[2023-03-26 09:19] VITALS: BP 128/75
--- NOTE | 2023-03-26 12:21 | P.DS ---
Admission Date: 03/25/23 Discharge Date: 03/26/23 Disposition: ROUTINE DISCHARGE Discharge Condition: GOOD Reason for Admission: Nausea and vomiting Brief History of Present Illness: 53-year-old female with no significant past medical history presented to the ED after she developed acute onset of nausea and an episode of vomiting. She denied any fever, diarrhea or abdominal pain. She reported that this morning she had some mild headache and took 2 tablets of Flaxin (220mg Ibuprofen). After that she felt uncomfortable and ate some food subsequently vomited. On arrival to the ED SBP 160 and pulse 106. Her labs showed lactic acid 2.8, potassium 2.7, bicarb 19, anion gap 17 and BUN/Cr of 21/1.27. CT head and CT abdomen and pelvis were negative for any acute findings. Chest x-ray was also negative. Patient was given IV Phenergan, IV fluid bolus and 20 mEq of potassium. Hospital Course: Pt is a 53 yo female with no significant past medical history who presents with abdominal pain, nausea and vomiting that started after she took ibuprofen at home We admitted pt for hypokalemia and lactic acidosis. CT head and CT abd were unremarkable. We repleted potassium and gave antiemetic. The symptoms resolved and pt requested for discharge. Pt was in NAD prior ot discharge. She was advised to follow up with her PCP within 1 week. Vital Signs/Physical Exam: Temp Pulse Resp BP Pulse Ox 97.0 F 63 16 128/75 99 03/26/23 08:00 03/26/23 08:00 03/26/23 08:00 03/26/23 08:00 03/26/23 08:00 Laboratory Data at Discharge: WBC 6.90 thou/uL (4.3-10.9) 03/26/23 05:25 Hgb 11.7 g/dL (12.0-15.0) L D 03/26/23 05:25 Hct 34.3 % (36.0-45.0) L 03/26/23 05:25 Plt Count 238 thou/uL (152-406) 03/26/23 05:25 Sodium 140 mEq/L (136-145) 03/26/23 05:25 Potassium 3.7 mEq/L (3.5-5.1) D 03/26/23 05:25 BUN 11 mg/dL (7-18) 03/26/23 05:25 Creatinine 0.73 mg/dL (0.55-1.02) 03/26/23 05:25 Glucose 106 mg/dL (74-106) 03/26/23 05:25 Phosphorus 2.9 mg/dL (2.5-4.9) 03/26/23 05:25 Magnesium 2.2 mg/dL (1.6-2.4) 03/26/23 05:25 Total Bilirubin 0.2 mg/dL (0.2-1.0) 03/26/23 05:25 AST 11 U/L (15-37) L 03/26/23 05:25 ALT 17 U/L (13-56) 03/26/23 05:25 Alkaline Phosphatase 69 U/L (45-117) D 03/26/23 05:25 Lipase 46 U/L (13-75) 03/25/23 19:30 Home Medications: NK [No Home Meds] 03/26/23 Physician Discharge Instructions: Continue ad jasmin activity. Take home meds as prescribed. Follow up with PCP within 1 week Diet: Regular Activity: Ad jasmin Followup: Oleksandr Caputo DO [Primary Care Provider] -
--- NOTE | 2023-03-29 13:42 | EKG ---
Test Date: 2023-03-25 Test Time: 19:33:18 [employer]uss Builder: ANIL MEASUREMENT RESULTS: Intervals: Rate: 81 AK: 140 QRSD: 80 QT: 414 QTc: 480 [place]: P: 79 AK: 140 QRS: 72 T: 55 INTERPRETIVE STATEMENTS: Normal sinus rhythm Prolonged QT Abnormal ECG No previous ECG available for comparison Electronically Signed On 03-29-23 13:26:55 LYE TREATER by Sumanth Hobbs
== END 2023-03-26 14:59 | disposition home or self-care (01) | DRG 641 ==
LOC: ER 19:02 → ERHOLD 22:58 → 2ND 03-26 00:29
PROVIDERS: ADMIT Internal Medicine; ATTEND Hospitalist
DX: E87.6 Hypokalemia (principal); N17.9 Acute kidney failure, unspecified; E87.20 Acidosis, unspecified; E86.0 Dehydration; K29.00 Acute gastritis without bleeding; T39.395A Adverse effect of other nonsteroidal anti-inflammatory drugs [NSAID], initial encounter; Z11.52 Encounter for screening for COVID-19
CPT/HCPCS: 36415; 70450; 71045; 74177; 80053; 81001; 83036; 83605; 83690; 83735; 84100; 84484; 85025; 87040; 87804; 87811; 93005; C9113; J0696; J2550; J3480; J7030; Q9967

== ENCOUNTER 2023-10-09 10:15 | Emergency (ER) | payer OTHER ==
--- OUTSIDE RECORDS SUMMARY | 2023-10-09 10:17 | XMS REPORT | Continuity of Care Document ---
Author Name Unknown Address [address] [facility] [place] [address] [facility] thconnect Address [address] [facility] [address] [place] [address] Care Team Providers Care Software Development Coordinator Name Role Phone SANDRA JAUREGUI Primary Care Physician Unava ilJAZMIN Castro Attending Clinician Unavailable JADEN GOLDSTEIN Attending Clinician Unavailable GALO ALVAREZ Attending Clinician Unavailable LAB90 Attending Clinician Unavailable [email or web address]_S Attending Clinician Unavaila MIGUEL Wen Attending Clinician Unavaila ble BHAVIK, LJ AAKASH DELACRUZ Attending Clinician U navailable Radiology Attending Clinician Unavailable RADIOLOGY Attending Clinician Unavailable Doctor Unassigned, [place] Attending Clinician U navailable [email or web address]_S Admitting Clinician Unavaila SANDRA Mcadams Admitting Clinician Unavaila ble Payers Payer Name Policy Type Policy Number Effective Date Expirati on Date Source [facility] MARLO CORCORAN COPAY [employer]OC[employer] 9 [id number] 2023 00:00:00 MANJEET BLAKE BRONGENA: HMO ON STANDARD 9 [id number] 2022 00:00:00 [employer] 2 [id number] 2022 00:00:00 Problems Condition Name Condition Details Condition Category Status Onset Date Resolution Date Last Treatment Date Treating Clinician Comments Source Acute bilateral low back pain with bilateral sciatica Acute bilateral low back pain with bilateral sciatica Disease Active 3-19 00:00: 00 Henny dykes Well adult exam Well adult exam Disease Active 8-10 00:00: 00 Henny dykes Allergies, Adverse Reactions, Alerts Allergy Name Allergy Type Status Severity Reaction(s) Onset Date Inactive Date Treating Clinician Comments Source [place] - Intraven ous Propensi ty to adverse reaction to drug Active 7 00:00: 00 NO KNOWN ALLERGIE S Drug Class Active [facility] Social History Social Habit Start Date Stop Date Quantity Comments Source Gender identity Meena Diego - External Sexual orientation K misty Diego - External Alcoholic beverage intake 2023-08-16 00:00:00 2023-08-16 00:00:00 Ex-drinker (finding) Henny Diego - External Alcohol intake 2023-05-15 00:00:00 2023-05-15 00:00:00 Ex-drinker (finding) Henny Diego - External History of Social function 2022-11-13 00:00:00 2022-11-13 00:00:00 Henny Diego - External Tobacco use and exposure 2022-05-03 00:00:00 2022-05-03 00:00:00 Smokeless tobacco non-user Henny Diego - External Education 2022-05-03 00:00:00 2022-05-03 00:00:00 6 Henny Diego - External Sex assigned at 1970 00:00:00 1970 00:00:00 Henny Diego - External Smoking Status Start Date Stop Date Source Tobacco smoking consumption unknown Henny Diego - External Never smoked tobacco Henny Diego - External Medications Ordered Medication Name Filled Medication Name Start Date Stop Date Current Medication? Ordering Clinician Indication Dosage Frequency Signature (SIG) Comments Components Source Gabapentin 100 MG oral Capsule 08-15 00:00: 00 Yes [id number] 100mg Q.5D Take 1 capsule (100 mg total) by mouth 2 times daily as needed (pain). Henny dykes Tizanidine HCl 2 MG oral Tablet 3-19 00:00: 00 Yes [id number] 2mg QD Take 1 tablet (2 mg total) by mouth nightly as needed. Henny dykes Diclofenac Sodium 75 MG oral Tablet Delayed Response 3-19 00:00: 00 Yes [id number] 75mg Q.5D Take 1 tablet (75 mg total) by mouth 2 times daily as needed (pain). Henny dykes Pseudoeph-B romphen-DM 30-2-10 MG/5ML oral Syrup 2-15 00:00: 00 04-13 00:00 :00 No 2.5mL Q.[id number] 3D Take 2.5 mL by mouth 3 times daily as needed. Henny dykes Tamsulosin HCl 0.4 MG oral Capsule 2-15 00:00: 00 04-13 00:00 :00 No .4mg Take 1 capsule (0.4 mg total) by mouth every night at bedtime. Henny dykes TRIMETHOPRI M-SULFAMETH OXAZOLE (BACTRIM DS) 800-160 MG oral Tablet 1-30 00:00: 00 04-13 00:00 :00 No 1{tbl} Take 1 tablet by mouth 2 times daily for 10 days. Henny dykes FLUTICASONE PROPIONATE, NASAL, 50 MCG/ACT nasal Suspension 8-10 00:00: 00 Yes [id number] 50ug QD Use 1 spray (50 mcg total) in each nostril daily as needed for rhinitis Henny dykes Cetirizine (ZYRTEC) 10 MG oral Tablet 8-10 00:00: 00 Yes [id number] 10mg QD Take 1 tablet (10 mg total) by mouth daily as needed for allergies Henny dykes PAXLOVID STANDARD (30) (300/100) Therapy Pack 6-10 00:00: 00 10-05 00:00 :00 No [id number] 35104 Take two 150 mg nirmatrelv ir (pink) tablets with one 100 mg ritonavir (white) tablet by mouth two times daily for 5 days Henny dykes Amoxicillin -Pot Clavulanate 875-125 MG oral Tablet 08-04 00:00: 00 Yes [id number] 1{tbl} Take 1 tablet by mouth 2 times daily Henny dykes Benzonatate (Tessalon Perles) 100 MG oral Capsule 08-04 00:00: 00 Yes [id number] 100mg Q.44700620 [id number] 3D Take 1 capsule (100 mg total) by mouth 3 times daily as needed for cough Henny dykes FLUTICASONE PROPIONATE, NASAL, 50 MCG/ACT nasal Suspension 07-01 00:00: 00 Yes [id number] SPRAY 1 SPRAY INTO EACH NOSTRIL EVERY DAY Henny dykes Azithromyci n 250 MG oral Tablet 05-03 00:00: 00 05-09 04:59 :00 No [id number] Take 2 tablets by mouth on day 1 then 1 tablet by mouth daily for 4 days thereafter . Henny dykes Cetirizine HCl (ZyrTEC Allergy) 10 MG oral Capsule 04-26 00:00: 00 Yes [id number] 10mg Take 1 capsule (10 mg total) by mouth daily Henny dykes methylPREDN ISolone 4 MG oral Tablet Therapy Pack 04-26 00:00: 00 Yes [id number] 1{jo} Take 1 jo by mouth See Admin Instructio ns Use as directed Henny dykes FLUTICASONE PROPIONATE, NASAL, 50 MCG/ACT nasal Suspension 04-26 00:00: 00 Yes [id number] 50ug Use 1 spray (50 mcg total) in each nostril daily Henny dykes Cetirizine (ZYRTEC) 10 MG oral Tablet 04-26 00:00: 00 Yes 1{tbl} Take 1 tablet by mouth daily Henny dykes Cetirizine (ZYRTEC) 10 MG oral Tablet 04-26 00:00: 00 Yes 10mg Take 1 tablet (10 mg total) by mouth daily Henny dykes Naproxen 500 MG oral Tablet 04-26 00:00: 00 Yes [id number] 500mg Take 1 tablet (500 mg total) by mouth in the morning and 1 tablet (500 mg total) in the evening. Take with meals. Henny dykes Benzonatate (Tessalon Perles) 100 MG oral Capsule 04-26 00:00: 00 08-04 00:00 :00 No [id number] 100mg Q.24283684 [id number] 3D Take 1 capsule (100 mg total) by mouth 3 times daily as needed for cough Henny dykes APPLY 2 TOPICAL GRAMS TO AFFECTED AREAS TWICE DAIY 09-06 00:00: 00 No TAKE 1 CAPSULE BY MOUTH TWICE A DAY FOR 7 DAYS 09-06 00:00: 00 No 100 TAKE 1 TABLET BY MOUTH EVERY 12 HOURS FOR 10 DAYS 09-06 00:00: 00 No TAKE 1 TAB(S) ORALLY EVERY 6 HOURS, NEEDED TAKE WITH FOOD 09-06 00:00: 00 No 400 Dose Unknown 08-13 00:00: 00 No TAKE 1 CAPSULE BY MOUTH TWICE A DAY FOR 7 DAYS 08-13 00:00: 00 No amoxicillin 875 mg-potassiu m clavulanate 125 mg tablet 08-13 00:00: 00 No 1mg Bromfed DM 2 mg-30 mg-10 mg/5 mL oral syrup 08-13 00:00: 00 No 10mg/5 mL TOME JENNI TABLETA MONSTER VECES AL LIZETTE CUANDO SEA NECESARIO 30 08-13 00:00: 00 No TAKE 1 TAB(S) ORALLY EVERY 6 HOURS, NEEDED TAKE WITH FOOD 08-13 00:00: 00 No Immunizations Ordered Immunization Name Filled Immunization Name Date Status Comments Source Tdap- (Boostrix, Adacel) 2019-10-15 00:00:00 [place] Tdap- (Boostrix, Adacel) 2019-10-15 00:00:00 Completed Henny Seybold - External Tdap 2019-10-15 00:00:00 Completed Tdap- (Boostrix, Adacel) Unknown Completed Henny Seybold - External Tdap- (Boostrix, Adacel) Unknown Completed Henny Seybold - External Tdap- (Boostrix, Adacel) Unknown Completed Henny Seybold - External Vital Signs Vital Name Observation Time Observation Value Comments S ource Systolic blood pressure 2023-08-16 20:13:00 115 mm[Hg] Henny Seybo ld - External Diastolic blood pressure 2023-08-16 20:13:00 71 mm[Hg] Henny Seybo ld - External Heart rate 2023-08-16 20:13:00 76 /min Kelse y Seybold - External Body temperature 2023-08-16 20:13:00 36.56 Lorin Henny Seybold - External Respiratory rate 2023-08-16 20:13:00 16 /min Henny Seybold - External Body height 2023-08-16 20:13:00 157.5 cm Meena ey Seybold - External Body weight 2023-08-16 20:13:00 59.875 kg Meena ey Seybold - External BMI 2023-08-16 20:13:00 24.14 kg/m2 Meena ey Seybold - External Oxygen saturation in Arterial blood by Pulse oximetry 2023-08-16 20:13:00 98 /min Henny Seybo ld - External Systolic blood pressure 2023-05-15 21:01:00 121 mm[Hg] Henny Seybo ld - External Diastolic blood pressure 2023-05-15 21:01:00 77 mm[Hg] Henny Seybo ld - External Heart rate 2023-05-15 21:01:00 65 /min Kelse y Seybold - External Body temperature 2023-05-15 21:01:00 36.61 Lorin Henny Seybold - External Respiratory rate 2023-05-15 21:01:00 20 /min Henny Seybold - External Body height 2023-05-15 21:01:00 157.5 cm Meena ey Seybold - External Body weight 2023-05-15 21:01:00 59.421 kg Meena ey Seybold - External BMI 2023-05-15 21:01:00 23.96 kg/m2 Meena ey Seybold - External Oxygen saturation in Arterial blood by Pulse oximetry 2023-05-15 21:01:00 100 /min Henny Seybo ld - External Systolic blood pressure 2023-04-13 22:01:00 111 mm[Hg] Henny Seybo ld - External Diastolic blood pressure 2023-04-13 22:01:00 75 mm[Hg] Henny Seybo ld - External Heart rate 2023-04-13 22:01:00 88 /min Kelse y Seybold - External Body temperature 2023-04-13 22:01:00 37.06 Lorin Henny Seybold - External Respiratory rate 2023-04-13 22:01:00 20 /min Henny Seybold - External Body height 2023-04-13 22:01:00 157.5 cm Meena ey Seybold - External Body weight 2023-04-13 22:01:00 59.875 kg Meena ey Seybold - External BMI 2023-04-13 22:01:00 24.14 kg/m2 Meena ey Seybold - External Systolic blood pressure 2022-10-05 13:39:00 123 mm[Hg] Henny Seybo ld - External Diastolic blood pressure 2022-10-05 13:39:00 67 mm[Hg] Henny Seybo ld - External Heart rate 2022-10-05 13:39:00 69 /min Kelse y Seybold - External Body temperature 2022-10-05 13:39:00 36.61 Lorin Henny Seybold - External Respiratory rate 2022-10-05 13:39:00 15 [...] External BMI 2022-05-03 20:43:00 25.24 kg/m2 Meena ey Seybold - External Oxygen saturation in Arterial blood by Pulse oximetry 2022-05-03 20:43:00 99 /min Henny Seybo ld - External BP Systolic 2021-08-13 15:12:00 [...] DIAGNOSIS AND TREATMENT 2021-12-20 21:32:54 Doctor Unassigned, [place] [facility] Plan of Care Planned Activity Planned Date Details Comments Source Goal Plan of Care Note [code = 41404-5] Goal Plan of Care Note [code = 76012-5] Goal Plan of Care Note [code = 05380-5] Goal Plan of Care Note [code = 84448-8] Goal Plan of Care Note [code = 56831-2] Goal Plan of Care Note [code = 06736-1] Goal Plan of Care Note [code = 05446-9] Goal Plan of Care Note [code = 34725-5] Goal Plan of Care Note [code = 91598-0] Encounters Start Date/Time End Date/Time Encounter Type Admission Type Attending Clinicians Care Facility Care Department Encounter ID Source 2023-11-27 16:00:00 2023-11-27 16:00:00 Out[facility] [id number] [facility]15 15:15:00 2023-11-15 15:15:00 Outpatient JAZMIN JUNIOR [facility] [id number] [facility]23-10-22 15:15:00 2023-10-22 15:15:00 Outpatient JADEN GOLDSTEIN [facility] [id number] [facility]23-10-12 15:50:00 2023-10-12 15:50:00 Outpatient GALO ALVAREZ HENNY GUERRIER [id number] [facility] 2023-10-09 00:00:00 2023-10-09 00:00:00 Outpatient JAZMIN JUNIOR HENNY GUERRIER [id number] [facility] 2023-10-05 15:20:00 2023-10-05 15:20:00 Outpatient HENNY GUERRIER [id number] [facility] 2023-10-05 14:15:00 2023-10-05 14:15:00 Outpatient [facility] GUERRI[facility] [id number] [facility] 2023-10-02 15:15:00 2023-10-02 15:15:00 Outpatient JAZMIN JUNIOR [facility]RI[facility] [id number] [facility]23-09-21 11:10:00 2023-09-21 11:10:00 Outpatient GALO ALVAREZ [facility] GUERRI[facility] [id number] [facility] 2023-08-20 08:00:00 2023-08-20 08:00:00 Outpatient LABDarius HENNY GUERRIER [id number] [facility] 2023-08-16 15:15:00 2023-08-16 15:15:00 Outpatient PREZAJAZMIN Moss HENNY GUERRIER [id number] [facility] 2023-06-28 16:00:00 2023-06-28 16:00:00 Outpatient PREJAZMIN HENRIQUEZ [facility]ENNY GUERRIER [id number] [facility] 2023-05-16 13:30:00 2023-05-16 13:30:00 Outpatient HENNY GUERRIER [id number] [facility] 2023-05-16 13:00:00 2023-05-16 13:00:00 Outpatient HENNY GUERRIER [id number] [facility] 2023-05-16 12:35:00 2023-05-16 12:35:00 Outpatient HENNY GUERRIER [id number] [facility] 2023-05-16 12:30:00 2023-05-16 12:30:00 Outpatient HENNY GUERRIER [id number] [facility] 2023-05-16 00:00:00 2023-05-16 00:00:00 Outpatient HENNY GUERRIER [id number] [facility] 2023-05-15 16:15:00 2023-05-15 16:15:00 Outpatient PREZAS, JAZMIN GUERRIER HENNY [id number] [facility] 2023-04-17 15:05:00 2023-04-17 15:05:00 Outpatient LAB90 HENNY GUERRIER [id number] [facility] 2023-04-17 00:00:00 2023-04-17 00:00:00 Outpatient PREZAS, JAZMIN [facility]NY GUERRIER [id number] [facility] 2023-04-16 00:00:00 2023-04-16 00:00:00 Outpatient PREZAS, JAZMIN [facility] GUERRI[facility] [id number] [facility] 2023-04-16 00:00:00 2023-04-16 00:00:00 Outpatient PREZAS, JAZMIN [facility]NY GUERRI[facility] [id number] [facility] 2023-04-13 16:25:00 2023-04-13 16:25:00 Outpatient LAB90 HENNY HENNY [id number] [facility] 2023-04-13 16:15:00 2023-04-13 16:15:00 Outpatient PREZAS, JAZMIN [facility] GU[facility]RI[facility] [id number] [facility] 2023-03-27 00:00:00 2023-03-27 00:00:00 Outpatient PREZAS, JAZMIN [facility] [id number] [facility] 2023-03-18 00:00:00 2023-03-18 00:00:00 [id number]:00 2022-12-24 00:00:00 Outpatient GC_GCBZW_Ka diyala_S [facility] [id number] [facility] 2022-10-05 09:30:00 2022-10-05 09:30:00 Outpatient LAB90 HENNY GUERRIER [id number] [facility] 2022-10-05 08:45:00 2022-10-05 08:45:00 Outpatient PREZAS, JAZMIN HENNY GUERRIER [id number] [facility] 2022-10-05 00:00:00 2022-10-05 00:00:00 Outpatient HENNY GUERRIER [id number] [facility] 2022-08-04 10:15:00 2022-08-04 10:15:00 Outpatient LAB90 [facility] [id number] [facility]22-08-04 09:30:00 2022-08-04 09:30:00 Outpatient PREZAS, JAZMIN [facility] [id number] [facility] 2022-07-01 00:00:00 2022-07-01 00:00:00 Outpatient SUEMIGUEL BUSH [id number] [facility] 2022-06-30 10:00:00 2022-06-30 10:00:00 Outpatient PREZAS, J[facility]MIN [facility] [id number] [facility] 2022-06-17 00:00:00 2022-06-17 00:00:00 Outpatient MIGUEL SUE [id number] [facility] 2022-05-31 16:00:00 2022-05-31 16:00:00 [facility]ZMIN [id number] [facility] 2022-05-23 00:00:00 2022-05-23 00:00:00 [facility] [id number] [facility] 2022-05-03 15:45:00 2022-05-03 15:45:00 Outpatient PREZASJAZMIN [id number] [facility] 2022-05-03 00:00:00 2022-05-03 00:00:00 Outpatient DOREENJAZMIN HENRIQUEZ HENNY GUERRIER [id number] Henny Diego 2022-04-26 14:10:00 2022-04-26 14:10:00 Outpatient TESTINGGINA [facility]ENNY GUERRIER [id number] [facility] 2022-04-26 09:30:00 2022-04-26 09:30:00 Outpatient SUEMIGUEL BUSH HENNY GUERRIER [id number] [facility] 2022-04-26 00:00:00 2022-04-26 00:00:00 Outpatient MIGUEL SUE [id number] [facility] 2021-12-20 16:34:34 2021-12-20 23:59:00 Hospital Encounter Radiology [facility] [id number] [facility] 2021-12-20 16:34:34 2021-12-20 23:59:00 Outpatient R RADIOLOGY [facility] [id number] [facility] 2021-12-20 00:00:00 2021-12-20 00:00:00 Orders Only Doctor Unassigned, [place] [facility] [id number] [facility] 2021-09-06 00:00:00 2021-09-06 00:00:00 Outpatient Visit [id number] Results Test Description Test Time Test Comments Results Result Co mments Source LIPID [id number] 00:00:00* Test Item Value Reference Range Interpretation Comme nts CHOLESTEROL (test code = 2210) 221 MG/DL TRIGLYCERIDES (test code = 2232) 81 MG/DL HDL CHOLESTEROL (test code = 2220) 77 MG/DL CALC LDL CHOL (test code = 2237) 126 MG/DL RISK RATIO LDL/HDL (test cod e = 2238) 1.64 RATIO CBC W/AUTO [id number] 00:00:00* Test Item Value Reference Range Interpretation [...] code = 1015) 253 K/UL CBC W/AUTO [id number] 00:00:00* Test Item Value Reference Range Interpretation [...] (test code = 1015) 253 K/UL HEMOGLOBIN [id number] 00:00:00* Test Item Value Reference Range Interpretation Comme nts HEMOGLOBIN A1c (test code = 68123) 5.8 % HEMOGLOBIN [id number] 00:00:00* Test Item Value Reference Range Interpretation Comme nts HEMOGLOBIN A1c (test code = 80467) 5.8 %
[2023-10-09] MEDS ORDERED: ASPIRIN 81 MG CHEWABLE TABLET ONE (10:54)
[2023-10-09 11:14] LABS: Absolute Eosinophils 0.1 K/uL (0-0.5); Absolute Lymphocytes (CBC) 1.3 K/uL (0.7-4.9); Absolute Monocytes 0.3 K/uL (0.1-1.3); Absolute Neutrophil 3.3 K/uL (1.8-8.0); Basophils % 0.4 % (0-1.3); Eosinophils % 1.2 % (0-4.4); Hematocrit 38.2 % (36.0-45.0); Lymphocytes % 25.9 % (15.3-44.8); MCH 30.3 pg (27.0-35.0); MCHC 33.9 g/dL (32.0-36.0); MCV 89.5 fL (80-100); MPV 8.7 fL (7.6-11.3); Monocytes % 6.1 % (3.3-12.3); Neutrophils % 66.4 % (41.7-73.7); Platelets 228 thou/uL (152-406); RBC Red Blood Cell Count 4.27 M/uL (3.86-4.86); Red Cell Distribution Width 13.2 % (12.1-15.2)
--- NOTE | 2023-10-09 11:27 | RAD REPORT ---
EXAM DESCRIPTION: RAD - Chest Single View - 10/09/2023 11:23 am CLINICAL HISTORY: CHEST PAIN COMPARISON: Chest Single View dated 03/25/2023 FINDINGS: Lines: None. Lungs: No evidence of edema or pneumonia. Pleural: No significant pleural effusions or pneumothorax. Cardiac: The heart size is within normal limits. Mediastinum: Within normal limits. Bones: No acute fractures. Other: None IMPRESSION: No acute cardiopulmonary disease.
[2023-10-09 11:37] LABS: Anion Gap 7.8 mEq/L (5.0-15.0); Troponin High Sensitivity 3.8 pg/mL (<58.9)
[2023-10-09 11:49] LABS: Potassium 3.8 mEq/L (3.5-5.1)
--- NOTE | 2023-10-09 14:25 | ER ---
Nurse's Notes [facility] Name: Myra Stapleton Age: 53 yrs Sex: Female : 1970 Arrival Date: 10/09/2023 Time: 10:15 Bed 13 Private MD: Diagnosis: Chest pain, unspecified;Muscle weakness (generalized) Presentation: 10/08 10:21 Chief complaint: Patient states: started having chest pain over the weekend, comes and dd2 goes, today started having some shortness of breath, chest just feels tight. Coronavirus screen: At this time, the client does not indicate any symptoms associated with coronavirus-19. Ebola Screen: No symptoms or risks identified at this time. Initial Sepsis Screen: Does the patient meet any 2 criteria? No. Patient's initial sepsis screen is negative. Does the patient have a suspected source of infection? No. Patient's initial sepsis screen is negative. Risk Assessment: Do you want to hurt yourself or someone else? Patient reports no desire to harm self or others. Onset of symptoms is unknown. 10:21 Method Of Arrival: Ambulatory dd2 10:21 Acuity: JAZMYN 3 dd2 Triage Assessment: 10:23 General: Appears in no apparent distress. Behavior is appropriate for age, anxious. dd2 Pain: Complains of pain in chest. Cardiovascular: Reports chest pain, shortness of breath. 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 - Infectious Disease History:: Denies. - Social history:: Smoking status: Patient denies any tobacco usage or history of. Screenin:09 [facility] ED Fall Risk Assessment (Adult) History of falling in the last 3 months, db including since admission No falls in past 3 months (0 pts) Confusion or Disorientation No (0 pts) Intoxicated or Sedated No (0 pts) Impaired Gait No (0 pts) Mobility Assist Device Used No (0 pt) Altered Elimination No (0 pt) Score/Fall Risk Level 0 - 2 = Low Risk Oriented to surroundings, Maintained a safe environment. Abuse screen: Denies threats or abuse. Denies injuries from another. Nutritional screening: No deficits noted. Tuberculosis screening: No symptoms or risk factors identified. Assessment: 10:50 Reassessment: Patient appears in no apparent distress at this time. Patient and/or db family updated on plan of care and expected duration. Pain level reassessed. Patient is alert, oriented x 3, equal unlabored respirations, skin warm/dry/pink. General: Appears in no apparent distress. comfortable, Behavior is calm, cooperative. Pain: Denies pain. Pain does not radiate. Pain began gradually. Neuro: Level of Consciousness is awake, alert, obeys commands, Oriented to person, place, time, situation. Cardiovascular: Reports HIGH BP AND CP MANAGER CT. Respiratory: Airway is patent Respiratory effort is even, unlabored, Respiratory pattern is regular, symmetrical. 12:00 Reassessment: Patient appears in no apparent distress at this time. Patient and/or db family updated on plan of care and expected duration. Pain level reassessed. Patient is alert, oriented x 3, equal unlabored respirations, skin warm/dry/pink. 13:00 Reassessment: Patient appears in no apparent distress at this time. Patient and/or db family updated on plan of care and expected duration. Pain level reassessed. Patient is alert, oriented x 3, equal unlabored respirations, skin warm/dry/pink. 14:00 Reassessment: Patient appears in no apparent distress at this time. Patient and/or db family updated on plan of care and expected duration. Pain level reassessed. Patient is alert, oriented x 3, equal unlabored respirations, skin warm/dry/pink. Patient states symptoms have improved. Vital Signs: 10:21 BP 174 / 85; Pulse 84; Resp 18; Temp 96.9; Pulse Ox 99% ; dd2 11:00 BP 115 / 79; Pulse 73; Resp 18; Pulse Ox 100% on R/A; db 12:00 BP 150 / 84; Pulse 61; Resp 20; Pulse Ox 100% on R/A; db 14:00 BP 139 / 71; Pulse 77; Resp 16; Pulse Ox 100% on R/A; db Vitals: 11:00 Cardiac Rhythm Assessment Regular Sinus rhythm. db ED Course: 10:17 Patient arrived in ED. im 10:23 Triage completed. dd2 10:23 Arm band placed on right wrist. Patient placed in an exam room, on a stretcher, on dd2 electronic device monitor, on pulse oximetry, Patient notified of wait time. 10:27 Pino Foster DO is Attending Physician. ms3 10:40 Cristal Coughlin, RN is Primary Nurse. db 10:44 EKG done. db 11:05 Initial lab(s) drawn, by me, sent to lab. Inserted saline lock: 22 gauge in right db antecubital area, using aseptic technique. Blood collected. Flushed with 10 mL NS. 11:25 XRAY Chest (1 view) In Process Unspecified. EDMS 14:46 Patient has correct armband on for positive identification. Bed in low position. Call db light in reach. Side rails up X 1. Placed in gown. Provided Education on: DISCHARGE AND FOLLOWUP. Client placed on continuous cardiac and pulse oximetry monitoring. NIBP monitoring applied. quality assurance monitor final on. Pulse ox on. NIBP on. Warm blanket given. Pillow given. 14:46 No provider procedures requiring assistance completed. IV discontinued, intact, db bleeding controlled, No redness/swelling at site. Patient maintains SpO2 saturation greater than 95% on room air. Administered Medications: 11:05 Drug: Aspirin PO Chewable Tablet 324 mg PO once; 81 mg tablets x 4 Route: PO; db 14:49 Follow up: Response: No adverse reaction db Medication: 11:09 VIS not applicable for this client. db Outcome: 14:25 Discharge ordered by . ms3 14:46 Discharged to home ambulatory, db 14:46 Condition: stable 14:46 Discharge instructions given to patient, Instructed on discharge instructions, follow up and referral plans. 14:49 Patient left the ED. db Signatures: Dispatcher [employer] EDCT Pino Foster DO DO ms3 Cristal Coughlin, RN RN db Dottie Carlos DIANA, RN RN dd2
--- NOTE | 2023-10-09 14:25 | EDPHYS ---
Physician Documentation [facility] Name: Myra Satpleton Age: 53 yrs Sex: Female : 1970 Arrival Date: 10/09/2023 Time: 10:15 Bed 13 Private MD: ED Physician Pino Foster HPI: 10/08 11:43 This 53 yrs old Female presents to ER via Ambulatory with complaints of High ms3 Blood Pressure, Chest Pain. 11:43 53-year-old female with no past medical history presents to the emergency department ms3 for chest pain that began at 7 AM and is resolved. Patient states she currently has generalized weakness. Patient denies shortness of breath, nausea, vomiting, diaphoresis.. 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 - Infectious Disease History:: Denies. - Social history:: Smoking status: Patient denies any tobacco usage or history of. ROS: 11:40 Neck: Negative for injury, pain, and swelling, ms3 11:40 Respiratory: Negative for shortness of breath, cough, wheezing, and pleuritic chest pain, Abdomen/GI: Negative for abdominal pain, nausea, vomiting, diarrhea, and constipation, MS/Extremity: Negative for injury and deformity, Skin: Negative for injury, rash, and discoloration, 11:40 Constitutional: Positive for generalized weakness, 11:40 Cardiovascular: Positive for chest pain, Exam: 11:40 Constitutional: This is a well developed, well nourished patient who is awake, alert, ms3 and in no acute distress. Head/Face: Normocephalic, atraumatic. Neck: Trachea midline, no cervical lymphadenopathy. Supple, full range of motion without nuchal rigidity, or vertebral point tenderness. No Meningismus. Chest/axilla: Normal chest wall appearance and motion. Nontender with no deformity. Cardiovascular: Regular rate and rhythm with a normal S1 and S2. No gallops, murmurs, or rubs. Normal PMI, no JVD. No pulse deficits. Respiratory: Lungs have equal breath sounds bilaterally, clear to auscultation and percussion. No rales, rhonchi or wheezes noted. No increased work of breathing, no retractions or nasal flaring. Abdomen/GI: Soft, non-tender, with normal bowel sounds. No distension or tympany. No guarding or rebound. No evidence of tenderness throughout. Skin: Warm, dry with normal turgor. Normal color with no rashes, no lesions, and no evidence of cellulitis. 11:40 ECG was reviewed by the Attending Physician. Vital Signs: 10:21 BP 174 / 85; Pulse 84; Resp 18; Temp 96.9; Pulse Ox 99% ; dd2 11:00 BP 115 / 79; Pulse 73; Resp 18; Pulse Ox 100% on R/A; db 12:00 BP 150 / 84; Pulse 61; Resp 20; Pulse Ox 100% on R/A; db 14:00 BP 139 / 71; Pulse 77; Resp 16; Pulse Ox 100% on R/A; db MDM: 10:41 Patient medically screened. ms3 11:43 Differential diagnosis: TN vs UTI vs Arrhythmia vs Electrolyte disturbance. ms3 11:43 External Records Reviewed: Echo performed at [facility] on October 05, 2023 ms3 shows ejection fraction greater than 60%.. 18:24 Data reviewed: vital signs, nurses notes, lab test result(s), EKG, radiologic studies, ms3 and as a result, I will discharge patient. I considered the following discharge prescriptions or medication management in the emergency department Medications were administered in the Emergency Department. See MAR. Counseling: I had a detailed discussion with the patient and/or guardian regarding the historical points, exam findings, and any diagnostic results supporting the discharge/admit diagnosis, lab results, radiology results, the need for outpatient follow up, to return to the emergency department if symptoms worsen or persist or if there are any questions or concerns that arise at home. Special discussion: Based on the patient's history, exam, and Dx evaluation, there is no indication for emergent intervention or inpatient Tx. It is understood by the patient/guardian that if the Sx's persist or worsen they need to return immediately for re-evaluation. 18:25 ED course: Discussed labs, EKG, chest x-ray with patient. Patient to follow-up with ms3 primary care physician in 2 to 3 days. Patient understands and agrees with plan. All questions were answered. Return precautions discussed include worsening symptoms, or any other concerns. On reevaluation patient was alert and oriented x 4, no apparent distress, nontoxic-appearing, ambulatory in the emergency department, speaking full sentences. 10/08 10:47 Order name: Basic Metabolic Panel; Complete Time: 11:51 ms3 10/08 10:47 Order name: CBC with Diff; Complete Time: 11:40 ms3 10/08 10:47 Order name: Magnesium; Complete Time: 11:51 ms3 10/08 10:47 Order name: Troponin HS; Complete Time: 11:51 ms3 10/08 12:00 Order name: Troponin High Sensitivity: Draw at 1310; Complete Time: 14:10 ms3 10/08 10:47 Order name: XRAY Chest (1 view); Complete Time: 11:40 ms3 10/08 10:47 Order name: Cardiac monitoring; Complete Time: 11:08 ms3 10/08 10:47 Order name: EKG - Nurse/Tech; Complete Time: 10:47 ms3 10/08 10:47 Order name: IV Saline Lock; Complete Time: 11:08 ms3 10/08 10:47 Order name: Labs collected and sent; Complete Time: 11:08 ms3 10/08 10:47 Order name: O2 Per Protocol; Complete Time: 11:08 ms3 10/08 10:47 Order name: O2 Sat Monitoring; Complete Time: 11:08 ms3 EC:40 Rate is 83 beats/min. Rhythm is regular. QRS [place] is Normal. [place] interval is normal. QRS ms3 interval is normal. Clinical impression: Normal ECG. Interpreted by me. Reviewed by me. Administered Medications: 11:05 Drug: Aspirin PO Chewable Tablet 324 mg PO once; 81 mg tablets x 4 Route: PO; db 14:49 Follow up: Response: No adverse reaction db Disposition Summary: 10/09/23 14:25 Discharge Ordered Notes: Location: Home ms3 Condition: Stable ms3 Diagnosis - Chest pain, unspecified ms3 - Muscle weakness (generalized) ms3 Followup: ms3 - With: Private Physician - When: 2 - 3 days - Reason: Recheck today's complaints Discharge Instructions: - Discharge Summary Sheet ms3 - Nonspecific Chest Pain, Adult ms3 - Weakness ms3 Forms: - Medication Reconciliation Form ms3 - Antibiotic Education ms3 - Prescription Opioid Use ms3 - Patient Portal Instructions ms3 - Leadership Thank You Letter ms3 Signatures: Dispatcher [employer] EDMS Pino Foster DO DO ms3 Cristal Coughlin, RN RN db KIARA MORALES RN RN dd2 Corrections: (The following items were deleted from the chart) 10:47 10:47 BASIC METABOLIC PANEL+C.LAB.BRZ ordered. EDMS EDMS 10:47 10:47 CBC+H.LAB.BRZ ordered. EDMS EDMS 10:47 10:47 MAGNESIUM+C.LAB.BRZ ordered. EDMS EDMS 10:47 10:47 Troponin High Sensitivity+C.LAB.BRZ ordered. EDMS EDMS 10:47 10:47 Chest Single View+RAD.RAD.BRZ ordered. EDMS EDMS
[2023-10-09 15:32] VITALS: TEMP 96.9
[2023-10-09 15:34] VITALS: O2SAT 100
[2023-10-09 15:36] VITALS: BP 139/71
== END 2023-10-09 14:49 | disposition home or self-care (01) ==
LOC: ER 10:15
DX: R07.9 Chest pain, unspecified (principal); M62.81 Muscle weakness (generalized)
CPT/HCPCS: 36415; 71045; 80048; 83735; 84484; 85025